=== PATIENT | female | born 2000 | race Caucasian/White ===

== ENCOUNTER 2018-12-04 17:32 | Inpatient (IN) | payer OTHER ==
[2018-12-04 17:49] LABS: ADD UMIC YES; UR ASCORBIC ACID NEGATIVE (NEGATIVE); UR BACTERIA FEW /HPF (NONE SEEN); UR BILIRUBIN (Dip) NEGATIVE (NEGATIVE); UR BLOOD (Dip) NEGATIVE (NEGATIVE); UR CLARITY CLEAR (CLEAR); UR COLOR YELLOW (YELLOW); UR GLUCOSE (Dip) NEGATIVE (NEGATIVE); UR KETONES (Dip) NEGATIVE (NEGATIVE); UR LEUKOCYTE ESTERASE (Dip) TRACE Leu/ul (NEGATIVE); UR NITRITE (Dip) NEGATIVE (NEGATIVE); UR RBC 1 /HPF (0-5); UR SPECIFIC GRAVITY (Dip) 1.012 (1.003-1.030); UR SQUAMOUS EPITHELIAL CELL FEW /HPF (FEW); UR TOTAL PROTEIN (Dip) NEGATIVE (NEGATIVE); UR UROBILINOGEN (Dip) NEGATIVE (NEGATIVE); UR WBC 2 /HPF (0-5)
[2018-12-04 18:22] LABS: ADD MAN DIFF? NO
[2018-12-04 18:24] LABS: BASOPHILS % 0.3 % (0.0-2.0); EOSINOPHILS # 0.1 10^3/ul (0.0-0.5); EOSINOPHILS % 0.4 % (0.0-7.0); HEMATOCRIT 38.1 % (37.0-47.0); HEMOGLOBIN 12.1 g/dl (12.0-16.0); LYMPHOCYTES # 1.4 10^3/ul (0.8-2.9); LYMPHOCYTES % 12.3 % (18.0-55.0); MEAN CORPUSCULAR HEMOGLOBIN 25.5 pg (29.0-33.0); MEAN CORPUSCULAR HGB CONC 31.8 g/dl (32.0-37.0); MEAN CORPUSCULAR VOLUME 80.2 fl (72.0-104.0); MEAN PLATELET VOLUME 10.1 fl (7.4-10.4); MONOCYTE # 0.7 10^3/ul (0.3-0.9); MONOCYTES % 5.7 % (0.0-13.0); NEUTROPHIL # 9.3 10^3/ul (1.6-7.5); NEUTROPHILS % 80.7 % (30.0-74.0); PLATELET COUNT 342 10^3/UL (140-415); RED BLOOD COUNT 4.75 10^6/ul (4.20-5.40); RED CELL DISTRIBUTION WIDTH 14.9 % (11.5-14.5)
[2018-12-04 18:24] LABS: WHITE BLOOD COUNT 11.6 10^3/ul (4.8-10.8)
[2018-12-04 18:43] LABS: INR 0.86; PROTIME 11.8 Sec (11.9-14.9); PT RATIO 0.9
[2018-12-04 18:44] LABS: ALANINE AMINOTRANSFERASE 16 IU/L (13-69); ALBUMIN 3.6 g/dl (3.3-4.9); ALBUMIN/GLOBULIN RATIO 0.92; ALKALINE PHOSPHATASE 109 IU/L (42-121); ANION GAP 11 (5-13); ASPARTATE AMINO TRANSFERASE 15 IU/L (15-46); BILIRUBIN,INDIRECT 0.3 mg/dl (0-1.1); BILIRUBIN,TOTAL 0.3 mg/dl (0.2-1.3); BLOOD UREA NITROGEN 11 mg/dl (7-20); CALCIUM 9.8 mg/dl (8.4-10.2); CARBON DIOXIDE 18 mmol/L (21-31); CHLORIDE 107 mmol/L (97-110); CREATININE 0.57 mg/dl (0.44-1.00); Estimated GFR > 60 mL/min (>60); GLUCOSE 97 mg/dl (70-220); PARTIAL THROMBOPLASTIN TIME 28.9 Sec (23.0-35.0); POTASSIUM 4.1 mmol/L (3.5-5.1); SODIUM 136 mmol/L (135-144); TOTAL PROTEIN 7.5 g/dl (6.1-8.1); URIC ACID 3.5 mg/dl (3.1-7.9)
[2018-12-04] MEDS: LACTATED RINGER'S 1,000 ML IV ×2 (20:05→22:04)
[2018-12-04] MEDS: ONDANSETRON 4 MG INJ IV (20:09)
[2018-12-04] MEDS ORDERED: IBUPROFEN 600 MG TAB PO (22:00)
[2018-12-04] MEDS ORDERED: MISOPROSTOL 200 MCG TAB PR (22:00)
[2018-12-04] MEDS ORDERED: METHYLERGONOVINE 0.2 MG INJ IM (22:00)
[2018-12-04] MEDS ORDERED: LIDOCAINE 1% (MPF) 30 ML INJ INJ (22:00)
[2018-12-04] MEDS ORDERED: CARBOPROST 250 MCG INJ IM (22:00)
[2018-12-04] MEDS ORDERED: OXYTOCIN 30 UNITS/LR 500 ML IV ×3 (22:00)
[2018-12-04] MEDS: MISOPROSTOL 50 MCG CAPSULE VAG (22:03)
[2018-12-05] MEDS: MISOPROSTOL 50 MCG CAPSULE PO ×5 (03:03→20:25)
[2018-12-05] MEDS: LACTATED RINGER'S 1,000 ML IV ×3 (04:41→21:24)
[2018-12-05 21:20] LABS: RAPID PLASMA REAGIN NONREACTIVE (NR)
[2018-12-06] MEDS: MISOPROSTOL 50 MCG CAPSULE PO ×2 (05:47)
[2018-12-06] MEDS: LACTATED RINGER'S 1,000 ML IV ×5 (05:58→22:06)
[2018-12-06] MEDS: OXYTOCIN 30 UNITS/LR 500 ML IV ×3 (10:32→23:36)
[2018-12-06] MEDS: BUTORPHANOL 2 MG INJ IV (13:06)
[2018-12-06] MEDS ORDERED: NALOXONE (0.4 MG/ML) INJ IV (18:30)
[2018-12-06] MEDS ORDERED: DIPHENHYDRAMINE 50 MG INJ IV (18:30)
[2018-12-06] MEDS ORDERED: ONDANSETRON 4 MG INJ IV (18:30)
[2018-12-06] MEDS: FENTAnyl 2MCG/ML-ROPIV 0.2% 100 ML BAG EPI (19:05)
[2018-12-06] MEDS: MINERAL OIL LIGHT 10 ML VIAL TOP (21:30)
[2018-12-06] MEDS: SODIUM CHLORIDE 0.9% 1L IRRIG IRR (22:08)
[2018-12-06] MEDS ORDERED: CEFAZOLIN 3 GM in DEXTROSE 5% 100 ML IV (22:30)
[2018-12-06] MEDS ORDERED: CARBOPROST 250 MCG INJ IM (23:30)
[2018-12-06] MEDS ORDERED: MISOPROSTOL 200 MCG TAB PR (23:30)
[2018-12-07] MEDS ORDERED: ONDANSETRON 4 MG INJ IV (00:30)
[2018-12-07] MEDS ORDERED: DIPHENHYDRAMINE 50 MG INJ IV (00:30)
[2018-12-07] MEDS ORDERED: NALOXONE (0.4 MG/ML) INJ IV (00:30)
[2018-12-07] MEDS: BENZOCAINE 20% 56 ML SPRAY TOP (02:36)
[2018-12-07] MEDS: LANOLIN HPA 1 PKT TOP (02:36)
[2018-12-07] MEDS: LACTATED RINGER'S 1,000 ML IV* ×2 (03:31→07:04)
[2018-12-07] MEDS: IBUPROFEN 800 MG TAB PO ×5 (03:34→23:38)
[2018-12-07] MEDS: HYDROCODONE/APAP (5/325) TAB PO ×2 (04:18→18:04)
[2018-12-07 08:19] LABS: ADD MAN DIFF? NO
[2018-12-07 08:22] LABS: BASOPHIL # 0.1 10^3/ul (0.0-0.1); BASOPHILS % 0.3 % (0.0-2.0); EOSINOPHILS # 0.1 10^3/ul (0.0-0.5); EOSINOPHILS % 0.4 % (0.0-7.0); HEMATOCRIT 35.5 % (37.0-47.0); LYMPHOCYTES # 1.8 10^3/ul (0.8-2.9); LYMPHOCYTES % 11.5 % (18.0-55.0); MEAN CORPUSCULAR HEMOGLOBIN 25.6 pg (29.0-33.0); MEAN CORPUSCULAR VOLUME 82.8 fl (72.0-104.0); MEAN PLATELET VOLUME 10.3 fl (7.4-10.4); MONOCYTE # 0.9 10^3/ul (0.3-0.9); MONOCYTES % 5.8 % (0.0-13.0); NEUTROPHIL # 12.6 10^3/ul (1.6-7.5); NEUTROPHILS % 81.5 % (30.0-74.0); PLATELET COUNT 305 10^3/UL (140-415); RED BLOOD COUNT 4.29 10^6/ul (4.20-5.40); RED CELL DISTRIBUTION WIDTH 14.9 % (11.5-14.5)
[2018-12-07 08:22] LABS: WHITE BLOOD COUNT 15.5 10^3/ul (4.8-10.8)
[2018-12-07] MEDS: SENNA/DOCUSATE NA (8.6MG/50MG) TAB PO ×2 (08:52→20:36)
[2018-12-07] MEDS: MEASLES,MUMPS,RUBELLA VACCINE INJ SC* (20:38)
[2018-12-08] MEDS: HYDROCODONE/APAP (5/325) TAB PO (02:32)
[2018-12-08] MEDS: IBUPROFEN 800 MG TAB PO ×2 (05:42→11:41)
[2018-12-08] MEDS: SENNA/DOCUSATE NA (8.6MG/50MG) TAB PO (10:13)
[2018-12-08] MEDS: DIPHTH/TET/ACEL PERTUSS (ADULT) 0.5 ML VIAL IM* (10:55)
[2018-12-08] MEDS: BENZOCAINE 20% 56 ML SPRAY TOP (15:24)
== END 2018-12-08 15:40 | disposition home or self-care (01) | DRG 807 ==
LOC: OBT 17:32 → L-D 12-05 11:06 → PP1 12-07 01:17 → L-D 17:33 → OBT 19:50 → L-D 19:50
PROC: 10E0XZZ Delivery of Products of Conception, External Approach (ICD-10-PCS; principal; 2018-12-06)
PROC: 0KQM0ZZ Repair Perineum Muscle, Open Approach (ICD-10-PCS; 2018-12-06)
DX: O13.4 Gestational [pregnancy-induced] hypertension without significant proteinuria, complicating childbirth (principal); Z37.0 Single live birth; O99.214 Obesity complicating childbirth; E66.01 Morbid (severe) obesity due to excess calories; O70.1 Second degree perineal laceration during delivery; Z3A.38 38 weeks gestation of pregnancy; Z23 Encounter for immunization
CPT/HCPCS: 62322; 76815; 76818; 80053; 81001; 84560; 85025; 85384; 85610; 85730; 86592; 86850; 86900; 86901; 87340; 90715; 96360; 99464